=== PATIENT | female | born 1990 | race Caucasian/White ===

== ENCOUNTER 2018-02-07 10:34 | Outpatient (CLI) | payer OTHER ==
[2018-02-07 11:10] LABS: RED BLOOD CELL COUNT(AUTO) 4.66 MIL/uL (4.20-5.40); WHITE BLOOD COUNT (AUTO) 6.3 K/uL (4.8-10.8)
[2018-02-07 11:11] LABS: HEMATOCRIT 40.9 % (36-48); HEMOGLOBIN 13.7 g/dL (12.0-16.0); MEAN CORPUSCULAR HEMOGLOBIN 29 pg (27-31); MEAN CORPUSCULAR HGB CONC 34 g/dL (33-37); MEAN CORPUSCULAR VOLUME 88 fL (80-94); PLATELET COUNT (AUTO) 280 K/uL (140-450); RED CELL DISTRIBUTION WIDTH 12.6 % (11.6-13.7)
[2018-02-07 11:12] LABS: BASOPHILS % (AUTO) 0.3 % (0.0-2.0); EOSINOPHILS % (AUTO) 2.6 % (0.0-4.0); LYMPHOCYTES # (AUTO) 2.9 K/uL (2.5-16.5); LYMPHOCYTES % (AUTO) 45.8 % (20.5-51.1); MONOCYTES # (AUTO) 0.5 K/uL (0.8-1.0); NEUTROPHILS # (AUTO) 2.7 K/uL (1.8-7.7); NEUTROPHILS % (AUTO) 43.3 % (42.2-75.2)
[2018-02-07 11:13] LABS: EOSINOPHILS # (AUTO) 0.2 K/uL (0-0.4)
[2018-02-07 11:23] LABS: ALBUMIN 3.8 g/dL (3.4-5.0); ANION GAP 11.8 (8-16); CHOL/HDL RATIO 3.5 (1-4.5); CREATININE 0.7 mg/dL (0.6-1.3); POTASSIUM 3.8 mmol/L (3.5-5.1); THYROID STIMULATING HORMONE 1.51 uIU/mL (0.34-3.74); TOTAL BILIRUBIN 0.4 mg/dL (0.0-1.0)
== END 2018-02-07 17:13 | disposition home or self-care (01) ==
LOC: MLB 10:34
PROVIDERS: ATTEND Family Medicine
DX: I10 Essential (primary) hypertension (principal)
CPT/HCPCS: 36415; 80053; 84443; 85025

== ENCOUNTER 2018-05-23 07:33 | Outpatient (CLI) | payer OTHER | END 2018-05-23 21:06 | disposition home or self-care (01) | LOC: MRD 07:33 | PROVIDERS: ATTEND Family Medicine | DX: M54.5 Low back pain (principal); R10.2 Pelvic and perineal pain | CPT/HCPCS: 72100; 72170 ==

== ENCOUNTER 2018-08-19 08:53 | Emergency (ER) | payer OTHER ==
[~2018-08-19] VITALS: Ht 162.6 cm; Wt 72.6 kg
--- NOTE | 2018-08-19 09:00 | NUR ---
strept culture collected
[2018-08-19 09:10] VITALS: BP 130/80
--- NOTE | 2018-08-19 09:14 | NUR ---
pt triaged and placed in er ch [facility]
--- NOTE | 2018-08-19 09:18 | NUR ---
pt c/o sore throat fever and body aches x 1 day. no other complaints. denies cp/sob.
[2018-08-19 10:11] VITALS: BP 128/75
--- NOTE | 2018-08-19 10:11 | NUR ---
Patient discharged with v/s stable. Written and verbal after care instructions given and explained. Patient alert, oriented and verbalized understanding of instructions. Ambulatory with steady gait. All questions addressed prior to discharge. ID band removed. Patient advised to follow up with PMD. Rx of PENICILLIN AND NORCO given. Patient educated on indication of medication including possible reaction and side effects. Opportunity to ask questions provided and answered.
== END 2018-08-19 10:11 | disposition home or self-care (01) ==
LOC: MED 08:53
DX: J03.90 Acute tonsillitis, unspecified (principal)
CPT/HCPCS: 87081; 99284

== ENCOUNTER 2018-11-20 09:48 | Outpatient (CLI) | payer OTHER ==
[2018-11-20 10:48] LABS: ALBUMIN 3.8 g/dL (3.4-5.0); CARBON DIOXIDE 31.2 mmol/L (21-32); CREATININE 0.6 mg/dL (0.6-1.3); POTASSIUM 4.2 mmol/L (3.5-5.1); TOTAL BILIRUBIN 0.4 mg/dL (0.0-1.0)
== END 2018-11-20 22:00 | disposition home or self-care (01) ==
LOC: MLB 09:48
PROVIDERS: ATTEND Family Medicine
DX: I10 Essential (primary) hypertension (principal)
CPT/HCPCS: 36415; 80053